=== PATIENT | female | born 1985 | race Caucasian/White ===

== ENCOUNTER 2021-01-16 12:07 | Emergency (ER) | payer OTHER, SELFPAY ==
[2021-01-16 12:33] VITALS: BP 123/72; PULSE 91; RESP 18; TEMP 36.8; O2SAT 98; BMI 43.4
--- NOTE | 2021-01-16 13:10 | ED.DENTAL ---
HPI - Dental/Oral General Chief complaint: Dental/Oral Stated complaint: dental pain Time Seen by Provider: 01/16/21 13:10 Source: patient Limitations: no limitations History of Present Illness HPI Narrative: Patient complaining of left lower dental pain. Pain worsening over the past 24 hours. Pain increases with palpation or chewing. Patient has a history of prior dental issues. Pain is 8/10. Patient denies fever chills shortness of breath or any other medical complaints at this time. Patient denies any allergies to antibiotics. Patient has had wisdom teeth removed in the past and is scheduled to have another 1 removed in the future. Patient denies any draining abscess in the oral cavity at this time. Related Data Home Medications Medication Instructions Recorded Confirmed bupropion HCl 300 mg 24 hr tablet, 300 mg PO DAILY 01/25/20 01/25/20 extended release cholecalciferol (vitamin D3) 50 50 mcg PO DAILY 01/25/20 01/25/20 mcg (2,000 unit) capsule clonazepam 0.5 mg tablet 0.5 mg PO BID PRN 01/25/20 01/25/20 ibuprofen 800 mg tablet 800 mg PO TID 01/25/20 01/25/20 vitamin 1 tab PO DAILY 01/25/20 01/25/20 no.76-iron,carbonyl 29 mg iron-folic acid 1 mg tablet topiramate 50 mg tablet 50 mg PO DAILY 01/25/20 01/25/20 trazodone 50 mg tablet 50 mg PO BEDTIME 01/25/20 01/25/20 Previous Rx's Medication Instructions Recorded pantoprazole 40 mg tablet,delayed 40 mg PO DAILY 90 Days #90 tab 09/16/20 release amoxicillin 500 mg tablet 500 mg PO TID 10 Days #30 tab 01/16/21 naproxen 500 mg tablet 500 mg PO BID PRN #30 tab 01/16/21 tramadol 50 mg tablet 50 mg PO Q8H PRN #10 tab 01/16/21 Allergies Allergy/AdvReac Type Severity Reaction Status Date / Time No Known Allergies Allergy Verified 01/25/20 15:50 Review of Systems Constitutional: Constitutional: Denies chills and Denies fever(s) ENT: Comments: Dental pain Cardiovascular: Cardiovascular: Denies chest pain and Denies dyspnea Respiratory: Respiratory: Denies cough and Denies dyspnea Gastrointestinal: Gastrointestinal: Denies nausea, Denies vomiting and Denies hematemesis Musculoskeletal: Musculoskeletal: Reports no additional musculoskeletal complaints Neurologic: Comments: Denies headache Allergic/Immunologic: Allergic/Immunologic: Denies urticaria PMFSH Past Medical History Attestation statement: The following information was validated with the patient. Medical History Depression with anxiety GERD (gastroesophageal reflux disease) Hypovitaminosis D Insomnia Left knee pain Migraine Surgical History History of laparoscopy History of tonsillectomy and adenoidectomy Family History Family History Father No problems noted. Mother No problems noted. Social History Social History Cigarettes Per Day: 10 Advance Directives: No Advance Directives Information Provided: No Physical Exam Vital Signs: Vital Signs: Last Vital Signs Temp 98.3 F 01/16/21 12:33 Pulse 91 01/16/21 12:33 Resp 18 01/16/21 12:33 BP 123/72 01/16/21 12:33 Pulse Ox 98 01/16/21 12:33 Body Mass Index 43.4 vital signs have been reviewed as normal and appeared to be correct. Blood pressure normal. Heart rate normal. Respiration rate normal. Temperature normal. Oxygen saturation normal. Appearance: Alert. Oriented X3. No acute distress. Head: Normal external exam. Normocephalic. Atraumatic. Eyes: PERRLA. EOMI. Conjunctiva and sclera normal. Eyelids normal. ENT: No obvious drainable abscess noted. Patient has tenderness the left lower molars. Neck: Soft full range of motion, no JVD CVS: Heart regular rate and rhythm no murmurs and rubs Respiratory: Breath sounds are clear to auscultation bilaterally. No accessory muscle use noted. Skin: Skin warm and dry. Normal skin color. Normal skin turgor. No rashes/lesions/lacerations noted. Extremities: No lower extremity edema. Extremities exhibit normal range of motion. Extremities nontender. Neuro: Oriented X 3. No motor deficit. No sensory deficit. Reflexes normal. Course Course Course Narrative: Dental caries Dental abscess Left-sided facial pain Symptoms consistent with dental caries in the left side patient instructed follow-up with a dentist. Will place on amoxicillin and Naprosyn and a short course of tramadol. Mass that was reviewed patient is on benzos chronically no opiates noted. Discharge Plan Discharge Clinical Impression: Dental caries, Toothache Patient Disposition: Home, Self-Care Instructions: Toothache (ED) Additional Instructions: Call dentist follow-up Medication as directed Prescriptions: New amoxicillin 500 mg tablet 500 mg PO TID 10 Days Qty: 30 RF: 0 naproxen 500 mg tablet 500 mg PO BID PRN (Reason: pain) Qty: 30 RF: 0 tramadol 50 mg tablet 50 mg PO Q8H PRN (Reason: pain) Qty: 10 RF: 0 No Action pantoprazole 40 mg tablet,delayed release (DR/EC) 40 mg PO DAILY 90 Days Qty: 90 RF: 3 bupropion HCl 300 mg tablet extended release 24 hr 300 mg PO DAILY RF: 0 clonazepam 0.5 mg tablet 0.5 mg PO BID PRNRF: 0 topiramate 50 mg tablet 50 mg PO DAILY RF: 0 trazodone 50 mg tablet 50 mg PO BEDTIME RF: 0 ibuprofen 800 mg tablet 800 mg PO TID RF: 0 cholecalciferol (vitamin D3) 50 mcg (2,000 unit) capsule 50 mcg PO DAILY RF: 0 PNV 29-1 29 mg iron- 1 mg tablet 1 tab PO DAILY RF: 0
== END 2021-01-16 13:20 | disposition home or self-care (01) ==
LOC: HO.ED 13:17
PROVIDERS: Emergency Provider Emergency Medicine Emergency Medical Services; PCP Internal Medicine
DX: K04.7 Periapical abscess without sinus (principal); K08.89 Other specified disorders of teeth and supporting structures; F17.210 Nicotine dependence, cigarettes, uncomplicated; Z71.6 Tobacco abuse counseling
CPT/HCPCS: 99282

== ENCOUNTER 2022-06-14 13:06 | Emergency (ER) | payer OTHER, SELFPAY ==
[2022-06-14 13:09] VITALS: PULSE 106; RESP 20; TEMP 36.6; O2SAT 98; BMI 42.7
--- NOTE | 2022-06-14 13:12 | ED_ITS ---
HPI - General Adult General Chief complaint: Skin/Abscess/Foreign Body Stated complaint: Possible Scabies? Time Seen by Provider: 06/14/22 13:15 Source: patient Mode of arrival: ambulatory Limitations: no limitations History of Present Illness HPI narrative: Patient is a 37 year old assigned female at with a history of anxiety presenting to the emergency department today concerned she has scabies. Patient states that she has a large lesion on the right side of her abdomen and a dry rash on her arms and legs so she is concerned that she has scabies. Patient denies any dizziness, lightheadedness, abdominal pain, nausea, vomiting, fever, chills, blurry vision, double vision, loss of vision, chest pain, difficulty breathing, shortness of breath, back pain, night sweats, pain with urination, increased urinary frequency, increased urinary urgency, blood in her urine or stool, syncope or a near syncopal episode, recent trauma or falls, bowel incontinence, bladder incontinence, bowel retention, bladder retention, or any other complaints at this time. Onset (ago): day(s) Severity: mild Severity scale (1-10): 2 Exacerbating factors: none Associated symptoms: rash Treatments prior to arrival: none Related Data Home Medications Medication Instructions Recorded Confirmed bupropion HCl 300 mg 24 hr tablet, 300 mg PO DAILY 01/25/20 01/25/20 extended release cholecalciferol (vitamin D3) 50 50 mcg PO DAILY 01/25/20 01/25/20 mcg (2,000 unit) capsule clonazepam 0.5 mg tablet 0.5 mg PO BID PRN 01/25/20 01/25/20 ibuprofen 800 mg tablet 800 mg PO TID 01/25/20 01/25/20 vitamin 1 tab PO DAILY 01/25/20 01/25/20 no.76-iron,carbonyl 29 mg iron-folic acid 1 mg tablet topiramate 50 mg tablet 50 mg PO DAILY 01/25/20 01/25/20 trazodone 50 mg tablet 50 mg PO BEDTIME 01/25/20 01/25/20 Previous Rx's Medication Instructions Recorded pantoprazole 40 mg tablet,delayed 40 mg PO DAILY 90 days #90 tabs 09/16/20 release amoxicillin 500 mg tablet 500 mg PO TID 10 days #30 tabs 01/16/21 naproxen 500 mg tablet 500 mg PO BID PRN pain #30 tabs 01/16/21 tramadol 50 mg tablet 50 mg PO Q8H PRN pain #10 tabs 01/16/21 cephalexin 500 mg capsule 500 mg PO Q6H 7 days #28 caps 06/14/22 prednisone 20 mg tablet 20 mg PO DAILY 7 days #7 tabs 06/14/22 Allergies Allergy/AdvReac Type Severity Reaction Status Date / Time No Known Allergies Allergy Verified 01/25/20 15:50 Review of Systems Constitutional: Constitutional: Reports no additional constitutional complaints, Denies chills, Denies fever(s) and Denies night sweats Eyes: Eyes: Reports no additional eye complaints, Denies blurry vision, Denies change in vision, Denies diplopia, Denies eye discharge, Denies loss of vision and Denies eye pain ENT: Denies dizziness Cardiovascular: Cardiovascular: Reports no additional cardiovascular complaints, Denies chest pain, Denies lightheadedness, Denies Loss of Consciousness and Denies dyspnea Respiratory: Respiratory: Reports no additional respiratory complaints and Denies dyspnea Gastrointestinal: Gastrointestinal: Reports no additional gastrointestinal complaints, Denies abdominal pain, Denies melena, Denies hematochezia, Denies change in bowel habits and Denies change in stool character Genitourinary: Genitourinary: Denies hematuria, Denies urinary frequency, Denies dysuria, Denies urinary incontinence, Denies urinary hesitancy and Denies urinary urgency Musculoskeletal: Musculoskeletal: Reports no additional musculoskeletal c omplaints, Denies numbness and Denies tingling Integumentary/Breasts: Skin/Breast: Reports dry skin Comments: lesion to the right lower abdomen Neurologic: Denies dizziness, Denies loss of vision, Denies numbness and Denies tingling Psychiatric: Psychiatric: Reports no additional psychiatric complaints Endocrine: Endocrine: Reports no additional endocrine complaints Hematologic/Lymphatic: Hematologic/Lymphatic: Reports no additional hematologic/lymphatic complaints Allergic/Immunologic: Allergic/Immunologic: Reports no additional allergic/immunologic complaints PMFSH Past Medical History Attestation statement: The following information was validated with the patient. Source: old records reviewed and nursing notes reviewed Medical History Depression with anxiety GERD (gastroesophageal reflux disease) Hypovitaminosis D Insomnia Left knee pain Migraine Surgical History History of laparoscopy History of tonsillectomy and adenoidectomy Family History Family History Father No problems noted. Mother No problems noted. Social History Social History Cigarettes Per Day: 10 Advance Directives: No Advance Directives Information Provided: Yes Physical Exam ED Vital Signs: Vital Signs - 24 hr 06/14/22 13:09 Temperature 98 F Pulse Rate 106 H Respiratory Rate 20 Pulse Oximetry 98 Oxygen Delivery Method Room Air BMI result Body Mass Index 42.7 Const General: cooperative, no acute distress, alert and awake Nutritional Appearance: well nourished Orientation/consciousness: patient oriented x3 Limitations: no limitations HENMT Head: Yes normal to inspection and Yes atraumatic Ears: hearing grossly normal bilaterally and external ears normal General nose exam: Normal external nose present, no nasal discharge noted and no epistaxis Face and sinus: Yes normal facial exam, No abrasion and No laceration Mouth: Normal oral and palatal mucosa present, no drooling and no muffled voice Eyes General: appearance normal, both eyes and all related structures Periorbital: periorbital findings normal Eyelids: Yes eyelids normal Conjunctivae: conjunctivae normal Pupils: Equal, round and reactive pupils present EOM: EOMs intact bilaterally Neck Neck: Yes normal visual inspection, Yes full ROM and Yes no lymphadenopathy Chest Chest palpation & inspection: normal inspection of the chest Resp Effort & Inspection: normal respiratory effort and able to speak in complete sentences Auscultation: clear to auscultation bilaterally Cardio Rate: regular rate Rhythm: regular rhythm GI Other: small ruptured abscess present to the right lower abdomen with minimal surrounding erythema, no active draining Skin Other: dry skin on bilateral arms and legs Neuro General: patient oriented x3 and moves all extremities Cranial nerves: Yes Equal, round and reactive pupils present Cognition (Neuro): normal cognition Motor exam (neuro): 5/5 motor strength present throughout Sensory Exam: Normal double simultaneous stimulation for sensation Coordination: [id number] test normal Extrem General: Yes normal to inspection, Yes full ROM and Yes capillary refill normal Psych Appearance: grossly normal Mental Status: mental status grossly normal Affect: normal affect Attitude: cooperative Thought process: Normal thought process present Thought content: Normal thought content present Insight: Good insight present (Psych) Medical Decision Making Medical Decision Making MDM Narrative: Patient is a 37 year old assigned male at with a history of anxiety presenting to the emergency department today with dry skin and a ruptured abscess. Patient's physical exam showed dry skin and a small ruptured abscess to the right lower quadrant of the abdomen. Given the surrounding erythema, will treat for cellulitis. I explained my physical exam findings as well as all test results to the patient. I answered all questions asked by the patient. I stressed the importance of the patient taking her medication as prescribed. I stressed the importance of the patient following up with her primary care provider and if symptoms persist, a farm equipment engine mechanic. I stressed the importance of the patient returning to the emergency department immediately if her symptoms were to worsen or if she were to develop any dizziness, shortness of breath, difficulty breathing, chest pain, blurry vision, loss of vision, nausea, vomiting, abdominal pain, fever, chills, back pain, or any other complaints. Alfredo brandon verbalized agreement and understanding with this treatment plan and discharge. Differential Diagnosis Differential Diagnoses: The differential diagnosis associated with the presentation includes abscess, cellulitis, eczema Discharge Plan Discharge Clinical Impression: Cellulitis, Eczema Patient Disposition: Home, Self-Care Instructions: Cellulitis (ED), Dermatitis (ED) Additional Instructions: Follow up with your primary care provider and if symptoms persist, a farm equipment engine mechanic. Return to the emergency department immediately if your symptoms worsen or if you develop any dizziness, shortness of breath, difficulty b reathing, chest pain, blurry vision, loss of vision, nausea, vomiting, abdominal pain, fever, chills, back pain, or any other complaints. Prescriptions: New prednisone 20 mg tablet 20 mg PO DAILY 7 Days Qty: 7 0RF cephalexin 500 mg capsule 500 mg PO Q6H 7 Days Qty: 28 0RF No Action pantoprazole 40 mg tablet,delayed release (DR/EC) 40 mg PO DAILY 90 Days Qty: 90 3RF amoxicillin 500 mg tablet 500 mg PO TID 10 Days Qty: 30 0RF naproxen 500 mg tablet 500 mg PO BID PRN (Reason: pain) Qty: 30 0RF tramadol 50 mg tablet 50 mg PO Q8H PRN (Reason: pain) Qty: 10 0RF bupropion HCl 300 mg tablet extended release 24 hr 300 mg PO DAILY clonazepam 0.5 mg tablet 0.5 mg PO BID PRN topiramate 50 mg tablet 50 mg PO DAILY trazodone 50 mg tablet 50 mg PO BEDTIME ibuprofen 800 mg tablet 800 mg PO TID cholecalciferol (vitamin D3) 50 mcg (2,000 unit) capsule 50 mcg PO DAILY PNV 29-1 29 mg iron- 1 mg tablet 1 tab PO DAILY Referrals: [facility] [Provider Group] (Call to establish and follow up with a farm equipment engine mechanic if symptoms persist.) [facility] [facility] [place] [facility] [place] (Call to establish and follow up with a primary care provider. If you already have a primary care provider, please follow up with them.) [facility] [place] [facility] Group] (Call to establish and follow up with a primary care provider. If you already have a primary care provider, please follow up with them.) [facility] [place] [facility] [place] Group[place] (Call to establish and follow up with a primary care provider. If you already have a primary care provider, please follow up with them.) Print Language: Gambian
== END 2022-06-14 13:24 | disposition home or self-care (01) ==
PROVIDERS: Emergency Provider Emergency Medicine
DX: L03.311 Cellulitis of abdominal wall (principal); L30.9 Dermatitis, unspecified; Z79.899 Other long term (current) drug therapy
CPT/HCPCS: 99282; 99283

== ENCOUNTER 2022-06-14 17:11 | Emergency (ER) | payer OTHER, SELFPAY ==
[2022-06-14 17:25] VITALS: BP 162/93; PULSE 108; RESP 20; TEMP 36.4; O2SAT 98; BMI 42.5
--- NOTE | 2022-06-14 18:15 | PC.NURSE ---
pt called into exam room, visibly anxious, observed picking at clothing, and fixation on skin. got pt changed into hospital attire, author was able to visualize small sebaceous cyst that appears to have opened. when questioned pt asked do you see the bug in there?! it's in there crawling around, they're all over my back nurse was able to visualize back, no open areas present, skin clean warm and dry. TM
--- NOTE | 2022-06-14 18:29 | ED.SKABFB ---
HPI - Skin/Abscess/Foreign Bdy General Chief complaint: Skin/Abscess/Foreign Body Stated complaint: back and lower stomach abcess? Time Seen by Provider: 06/14/22 18:18 Source: patient Mode of arrival: ambulatory Limitations: no limitations History of Present Illness HPI narrative: Patient is a 37-year-old female who presents emergency department for evaluation of an abscess to her stomach and diffuse rash. She states that she was seen in the emergency department earlier today, she received a prescription for antibiotics and a steroid. She is very anxious, states she is very concerned about scabies, and she would like to have this re-evaluated. Related Data Home Medications Medication Instructions Recorded Confirmed bupropion HCl 300 mg 24 hr tablet, 300 mg PO DAILY 01/25/20 01/25/20 extended release cholecalciferol (vitamin D3) 50 50 mcg PO DAILY 01/25/20 01/25/20 mcg (2,000 unit) capsule clonazepam 0.5 mg tablet 0.5 mg PO BID PRN 01/25/20 01/25/20 ibuprofen 800 mg tablet 800 mg PO TID 01/25/20 01/25/20 vitamin 1 tab PO DAILY 01/25/20 01/25/20 no.76-iron,carbonyl 29 mg iron-folic acid 1 mg tablet topiramate 50 mg tablet 50 mg PO DAILY 01/25/20 01/25/20 trazodone 50 mg tablet 50 mg PO BEDTIME 01/25/20 01/25/20 Previous Rx's Medication Instructions Recorded pantoprazole 40 mg tablet,delayed 40 mg PO DAILY 90 days #90 tabs 09/16/20 release amoxicillin 500 mg tablet 500 mg PO TID 10 days #30 tabs 01/16/21 naproxen 500 mg tablet 500 mg PO BID PRN pain #30 tabs 01/16/21 tramadol 50 mg tablet 50 mg PO Q8H PRN pain #10 tabs 01/16/21 cephalexin 500 mg capsule 500 mg PO Q6H 7 days #28 caps 06/14/22 prednisone 20 mg tablet 20 mg PO DAILY 7 days #7 tabs 06/14/22 Allergies Allergy/AdvReac Type Severity Reaction Status Date / Time No Known Allergies Allergy Verified 01/25/20 15:50 Review of Systems Review of Systems: Yes all other systems are reviewed and are negative PMFSH Past Medical History Attestation statement: The following information was validated with the patient. Source: old records reviewed Medical History Depression with anxiety GERD (gastroesophageal reflux disease) Hypovitaminosis D Insomnia Left knee pain Migraine Surgical History History of laparoscopy History of tonsillectomy and adenoidectomy Family History Family History Father No problems noted. Mother No problems noted. Social History Social History Cigarettes Per Day: 10 Advance Directives: No Advance Directives Information Provided: Yes Physical Exam Vital Signs: Vital Signs: Last Vital Signs Temp 97.6 F 06/14/22 17:25 Pulse 108 H 06/14/22 17:25 Resp 20 06/14/22 17:25 BP 162/93 H 06/14/22 17:25 Pulse Ox 98 06/14/22 17:25 O2 Del Method 06/14/22 17:25 BMI result Body Mass Index 42.5 Appearance: Alert.?Oriented to person, place and time. No acute distress.?Normal affect. Neck: Normal inspection.? Neck supple.?? CVS: Heart sounds normal. Normal heart rate and rhythm.? Pulses normal.?? Respiratory: No respiratory distress.? Lung sounds clear to auscultation bilaterally?? Abdomen: Soft and non-tender. Normoactive bowel sounds. Skin: Skin warm and dry.? Normal skin color.? Right lower quadrant the abdomen with open abscess, no fluctuance, no active drainage, surrounding erythema. Neuro: Moves all extremities spontaneously. Sensation intact bilaterally. . Ambulates with normal steady gait. Medical Decision Making Medical Decision Making MDM Narrative: Patient was seen in the emergency department this afternoon, was found to have a ruptured abscess to the right lower quadrant of her abdomen, there was concern for cellulitis therefore prescription for Keflex was sent to pharmacy, she was additionally advised that the rash present to arms and legs was consistent with eczema, she received a prescription for prednisone was advised to follow-up with box office attendant for persistent symptoms. Earlier she expressed her concern about scabies, she states that she keeps getting a sharp sensation on all areas of her skin to the back arms and legs, and then it goes away. The areas that she is concerned about at the time of examination have a very fine macular type rash present. Upon examination there is absence of a papulovesicular rash or persistent nodules, she reports these sensations not to be particularly itchy, and she is certainly without any intense itch, it is absent from into her intertriginous/ interdigital areas, no visible burrows. I advised her at this time I have a very low suspicion for scabies, she was reassured with this. I did offer treatment with permethrin we discussed appropriate treatment she however at this time. She will continue to take the Keflex and prednisone as prescribed to her earlier today. We also discussed using a topical moisturizing lotions/ointment and follow-up with primary care provider as needed. She verbalized understanding, she is stable for discharge Differential Diagnosis Differential Diagnoses: The differential diagnosis associated with the presentation includes (Abscess, cellulitis, scabies, bedbugs, contact dermatitis, allergic reaction, eczema) External Record Review External record reviewed: Office record Discharge Plan Discharge Clinical Impression: Cellulitis Patient Disposition: Home, Self-Care Additional Instructions: Continue taking the medications as prescribed to earlier today from the emergency department. As we discussed, you may also use Benadryl as needed for symptoms. Please contact your primary care provider and arrange for a follow-up visit this week. You may return back to emergency department with any new or worsening symptoms or concerns. Prescriptions: No Action pantoprazole 40 mg tablet,delayed release (DR/EC) 40 mg PO DAILY 90 Days Qty: 90 3RF amoxicillin 500 mg tablet 500 mg PO TID 10 Days Qty: 30 0RF naproxen 500 mg tablet 500 mg PO BID PRN (Reason: pain) Qty: 30 0RF tramadol 50 mg tablet 50 mg PO Q8H PRN (Reason: pain) Qty: 10 0RF prednisone 20 mg tablet 20 mg PO DAILY 7 Days Qty: 7 0RF cephalexin 500 mg capsule 500 mg PO Q6H 7 Days Qty: 28 0RF bupropion HCl 300 mg tablet extended release 24 hr 300 mg PO DAILY clonazepam 0.5 mg tablet 0.5 mg PO BID PRN topiramate 50 mg tablet 50 mg PO DAILY trazodone 50 mg tablet 50 mg PO BEDTIME ibuprofen 800 mg tablet 800 mg PO TID cholecalciferol (vitamin D3) 50 mcg (2,000 unit) capsule 50 mcg PO DAILY PNV 29-1 29 mg iron- 1 mg tablet 1 tab PO DAILY Referrals: Physician,Unknown J [Primary Care Provider] -
== END 2022-06-14 18:59 | disposition home or self-care (01) ==
PROVIDERS: Emergency Provider Emergency Medicine Emergency Medical Services
DX: L03.311 Cellulitis of abdominal wall (principal); L30.9 Dermatitis, unspecified
CPT/HCPCS: 99282

== ENCOUNTER 2022-07-16 23:52 | Emergency (ER) | payer OTHER, SELFPAY ==
[2022-07-17 00:04] VITALS: BP 189/118; PULSE 110; RESP 22; TEMP 36.8; O2SAT 98; BMI 37.8
--- NOTE | 2022-07-17 01:29 | ED_ITS ---
HPI - General Adult General Chief complaint: Animal Bite Stated complaint: mites from cat? Time Seen by Provider: 07/17/22 01:17 Source: patient, RN notes reviewed and old records reviewed Mode of arrival: ambulatory Limitations: no limitations History of Present Illness HPI narrative: 37-year-old female presents for evaluation of a rash to her entire body. She reports that when she was here about 1 month ago with concern for scabies. She was told that she had cellulitis. She states ?I feel like something is crawling all over my skin. ? She states that her boyfriend and her cousin live with her both have similar rashes now. The rash is quite itchy and she has been scratching herself for the last month. She reports that she has a cat at home and is concerned that she got some sort of mites from the cap Related Data Home Medications Medication Instructions Recorded Confirmed bupropion HCl 300 mg 24 hr tablet, 300 mg PO DAILY 01/25/20 01/25/20 extended release cholecalciferol (vitamin D3) 50 50 mcg PO DAILY 01/25/20 01/25/20 mcg (2,000 unit) capsule clonazepam 0.5 mg tablet 0.5 mg PO BID PRN 01/25/20 01/25/20 ibuprofen 800 mg tablet 800 mg PO TID 01/25/20 01/25/20 vitamin 1 tab PO DAILY 01/25/20 01/25/20 no.76-iron,carbonyl 29 mg iron-folic acid 1 mg tablet topiramate 50 mg tablet 50 mg PO DAILY 01/25/20 01/25/20 trazodone 50 mg tablet 50 mg PO BEDTIME 01/25/20 01/25/20 Previous Rx's Medication Instructions Recorded pantoprazole 40 mg tablet,delayed 40 mg PO DAILY 90 days #90 tabs 09/16/20 release amoxicillin 500 mg tablet 500 mg PO TID 10 days #30 tabs 01/16/21 naproxen 500 mg tablet 500 mg PO BID PRN pain #30 tabs 01/16/21 tramadol 50 mg tablet 50 mg PO Q8H PRN pain #10 tabs 01/16/21 cephalexin 500 mg capsule 500 mg PO Q6H 7 days #28 caps 06/14/22 prednisone 20 mg tablet 20 mg PO DAILY 7 days #7 tabs 06/14/22 diphenhydramine HCl 25 mg capsule 25 mg PO TID PRN itching #20 caps 07/17/22 (Banophen) permethrin 5 % topical cream 1 appl topical Q14D 2 doses #60 07/17/22 grams Allergies Allergy/AdvReac Type Severity Reaction Status Date / Time No Known Allergies Allergy Verified 07/17/22 00:07 Review of Systems Constitutional: Constitutional: Reports as per HPI, Denies chills, Denies fatigue, Denies fever(s) and Denies headache(s) ENT: Denies headache(s) Cardiovascular: Cardiovascular: Denies chest pain and Denies dyspnea Respiratory: Respiratory: Denies cough and Denies dyspnea Gastrointestinal: Gastrointestinal: Denies abdominal pain, Denies constipation and Denies vomiting Genitourinary: Genitourinary: Denies dysuria Integumentary/Breasts: Skin/Breast: Reports pruritus and Reports rash Neurologic: Denies headache(s) and Denies focal weakness Endocrine: Endocrine: Denies fatigue PMFSH Past Medical History Medical History Depression with anxiety GERD (gastroesophageal reflux disease) Hypovitaminosis D Insomnia Left knee pain Migraine Surgical History History of laparoscopy History of tonsillectomy and adenoidectomy Family History Family History Father No problems noted. Mother No problems noted. Social History Social History Cigarettes Per Day: 10 Advance Directives: No Advance Directives Information Provided: Yes Physical Exam ED Vital Signs: Vital Signs - 24 hr 07/17/22 00:04 Temperature 98.2 F Pulse Rate 110 H Respiratory Rate 22 H Blood Pressure 189/118 H Pulse Oximetry 98 Oxygen Delivery Method Room Air BMI result Body Mass Index 37.8 Const General: healthy appearing, comfortable, no acute distress, alert and awake Nutritional Appearance: well nourished Orientation/consciousness: patient oriented x3 HENMT Head: Yes normocephalic and Yes atraumatic Throat: Yes posterior oropharynx normal Eyes Eyelids: Yes eyelids normal Conjunctivae: conjunctivae normal Sclerae: sclerae normal Corneas: corneas normal Pupils: Equal, round and reactive pupils present EOM: EOMs intact bilaterally Neck Neck: Yes full ROM Resp Effort & Inspection: normal respiratory effort, able to speak in complete sentences, no audible wheezes and not labored Auscultation: clear to auscultation bilaterally Cardio Rate: regular rate Rhythm: regular rhythm GI Inspection: No distended Palpation (GI): Soft to palpation, not firm, nontender, no guarding and not rig id Auscultation: normoactive bowel sounds Skin Other: Patient has a diffuse macular rash with some evident areas of burrowing. Her linear excoriation candelario as well. The rash is most evident on the arms and legs with some truncal involvement. No obvious involvement to the face Neuro General: patient oriented x3 Cranial nerves: Yes CN's II-XII intact bilaterally, Yes Equal, round and reactive pupils present and Yes Bilaterally intact EOM present Cognition (Neuro): normal cognition Extrem Other: Moving all extremities well without any obvious deformities Medical Decision Making Medical Decision Making MDM Narrative: Patient is here about 1 month ago with some concern for scabies. Her rash is not consistent with scabies and there are 2 other individuals the house with a similar rash. We will treat with permethrin x2 doses. Differential Diagnosis Scabies Acute rash Dermatitis Folliculitis Cellulitis Discharge Plan Discharge Clinical Impression: Dermatitis Patient Disposition: Home, Self-Care Instructions: Scabies (ED) Additional Instructions: It is possible your rash is attributed to scabies. Use permethrin cream applied to the entire body except avoid the eyes and leave on overnight. Shower off in the morning Use Benadryl as needed for itching and rash. This will make you sleepy Prescriptions: New permethrin 5 % cream 1 appl topical Q14D Qty: 60 0RF Rx Instructions: apply second treatment 14 days after first treatment if live lice remain diphenhydramine HCl [Banophen] 25 mg capsule 25 mg PO TID PRN (Reason: itching) Qty: 20 0RF No Action pantoprazole 40 mg tablet,delayed release (DR/EC) 40 mg PO DAILY 90 Days Qty: 90 3RF amoxicillin 500 mg tablet 500 mg PO TID 10 Days Qty: 30 0RF naproxen 500 mg tablet 500 mg PO BID PRN (Reason: pain) Qty: 30 0RF tramadol 50 mg tablet 50 mg PO Q8H PRN (Reason: pain) Qty: 10 0RF prednisone 20 mg tablet 20 mg PO DAILY 7 Days Qty: 7 0RF cephalexin 500 mg capsule 500 mg PO Q6H 7 Days Qty: 28 0RF bupropion HCl 300 mg tablet extended release 24 hr 300 mg PO DAILY clonazepam 0.5 mg tablet 0.5 mg PO BID PRN topiramate 50 mg tablet 50 mg PO DAILY trazodone 50 mg tablet 50 mg PO BEDTIME ibuprofen 800 mg tablet 800 mg PO TID cholecalciferol (vitamin D3) 50 mcg (2,000 unit) capsule 50 mcg PO DAILY PNV 29-1 29 mg iron- 1 mg tablet 1 tab PO DAILY
== END 2022-07-17 01:46 | disposition home or self-care (01) ==
PROVIDERS: Emergency Provider Emergency Medicine Emergency Medical Services
DX: L30.9 Dermatitis, unspecified (principal)
CPT/HCPCS: 99282; 99283

== ENCOUNTER 2024-05-17 13:31 | Outpatient (AMB) | payer OTHER, SELFPAY ==
[2024-05-17 13:39] VITALS: BP 146/100; BMI 38.0
--- NOTE | 2024-05-17 13:39 | MHC.PC.OV ---
Vital Signs 05/17/24 13:39 Height 5 ft 1 in Weight 201 lb BMI 38.0 BP 146/100 H Blood Pressure Location Lt brachial Position Sitting Intake Visit Reasons: asthma f/u Lead Designer Required: No Accompanied by: Self / Same As Patient Allergies No Known Allergies Allergy (Verified 05/17/24 13:50) Medication List - Last Reconciled 05/17/24 by Chasity Luciano MD No Known Home Meds Tobacco use date assessed: 05/17/24 Dental Screening Dental Screen Date: 05/17/24 Did you have a dental visit in the last 12 months?: No Did you have a dental problem in the last 6 months where you did not have access to dental care?: No Was dental information given to patient?: Patient has dentist HPI HPI Comments History of Present Illness Details This is a 38-year-old female with moderate major depression, anxiety moderate persistent asthma, low vitamin-D and obesity that comes today to reestablish care. She has to be on bupropion which works well for her depression. She requires rescue inhaler every day and I will add Anoro. Vitamin-D levels were be ordered. She is obese with a BMI of 38 and will be referred to weight management. [facility] Medical History (Updated 05/17/24 @ 19:32 by Chasity Luciano MD) Insomnia Migraine GERD (gastroesophageal reflux disease) Hypovitaminosis D Depression with anxiety Left knee pain Surgical History History of laparoscopy History of tonsillectomy and adenoidectomy Family History (Updated 05/17/24 @ 13:55 by Chasity Luciano MD) Father Essential hypertension Mother No problems noted. Social History (Updated 05/17/24 @ 13:55 by Chasity Luciano MD) Housing: Apartment Alcohol intake: current Alcohol intake frequency: a few times a month Alcohol type: hard liquor and other Patient Tobacco Use Status: Current everyday Tobacco user Tobacco use type: Cigarette Cigarettes Per Day: 10 e-Cigarette/Vaping Use: Never Used Second Hand Smoke Exposure: No service: No Current occupational status: unemployed Cognitive needs: No Hearing needs: No Vision needs: No Questionnaire PHQ-9 Over the last 2 weeks, how often have you been bothered by any of the following problems? 1. Little interest or pleasure in doing things: more than half the days 2. Feeling down, depressed, or hopeless: more than half the days 3. Trouble falling or staying asleep, or sleeping too much: nearly every day 4. Feeling tired or having little energy: nearly every day 5. Poor appetite or overeating: several days 6. Feeling bad about yourself - or that you are a failure or have let yourself or your family down: more than half the days 7. Trouble concentrating on things, such as reading the newspaper or watching television: several days 8. Moving or speaking so slowly that other people could have noticed. Or the opposite - being so fidgety or restless that you have been moving around a lot more than usual: more than half the days 9. Thoughts that you would be better off or of hurting yourself in some way: not at all Total score: 16 Depression Screening Interpretation: Positive (no suicidal thoughts) Depression Screening Follow-up: Existing condition and Follow-up Visit Requested Depression Screening Done: Yes 97205 - PHQ-9 Billing: Yes Source: Developed by Drs. Crispin Iyer, Jaqui Ortega, Vinay Dunaway and colleagues, with an educational domingo from [employer]. Thrive Questionnaire Date Thrive assessed: 05/17/24 I am a: Patient What is your living situation today?: I have a steady place to live Within the past 12 months, did the food you bought not last and you didn't have the money to get more?: Never true Within the past 12 months, did you worry whether your food would run out before you got money to buy more?: Never true Do you have trouble paying for medicines?: No Do you have trouble getting transportation to medical appointments?: No Do you have trouble paying your heating and electricity bill?: No Do you have trouble taking care of your child, family member or friend?: No Do you have trouble with day-to-day activities such as bathing, preparing meals, shopping, managing finances, etc.?: No Are you currently unemployed and looking for a job?: No Are you interested in more education?: No Please select the resources that you would like help with: None Currently or been in a relationship where the following occur: No concerns reported THRIVE Score: 0 AUDIT C Alcohol Use Questionnaire (AUDIT-C) 1. How often do you have a drink containing alcohol?: Monthly or less 2. How many drinks containing alcohol do you have on a typical day when you are drinking?: 1 or 2 3. How often do you have six or more drinks on one occasion?: Never Total Score: 1 Score Reviewed/Action Taken: No AALIYAH-7 AMB Questionnaire AALIYAH-7 Date AALIYAH - 7 assessed: 05/17/24 Feeling nervous, anxious, or on edge: 2 = More than half the days Not being able to stop or control worryin = Several days Worrying too much about different things: 2 = More than half the days Trouble relaxin = More than half the days Being so restless that it is hard to sit still: 3 = Nearly every day Becoming easily annoyed or irritable: 3 = Nearly every day Feeling afraid as if something awful might happen: 0 = Not at all Total AALIYAH-7 score (0-4 normal; 5-9 mild; 10-14 moderate; 15-21 severe): 13 Source: Developed by Drs. Crispin Iyer, Jaqui Ortega, Vinay Dunaway and colleagues, with an educational domingo from [employer]. AALIYAH-7 Assessment Billing AALIYAH-7 Assessment Tool: AALIYAH-7 Assessment 14259 Review of Systems Const All systems reviewed & are unremarkable except as noted in HPI and below Card Denies chest pain at rest, Denies chest pain with activity, Denies edema, Denies irregular heart rhythm, Denies claudication, Denies dyspnea, Denies dyspnea on exertion, Denies orthopnea, Denies paroxysmal nocturnal dyspnea and Denies slow heart rate Resp Denies cough, Denies dyspnea and Denies dyspnea on exertion Physical exam (Primary Care) Vital Signs: Last Vital Signs BP 146/100 H 05/17/24 13:39 Care Plan Goal for BP management: Recheck blood pressure in 3 weeks BMI result Body Mass Index 38.0 BMI Assessment/Plan discussion: High BMI High, discussed plan: lifestyle, weight reduction, dietary and physical activity Tobacco/Smoking Status: Tobacco use Status Tobacco use date assessed 05/17/24 05/17/24 13:49 Patient Tobacco Use Status Current everyday Tobacco 05/17/24 13:55 Tobacco use type Cigarette 05/17/24 13:55 e-Cigarette/Vaping Use Never Used 05/17/24 13:55 Are you ready to quit: No Tobacco cessation counseling provided: Yes Items discussed: Nicotine replacement and QuitWorks Relapse Prevention: discussed the importance of a supportive environment, discussed extending NRT, discussed negative mood or depression after quitting, weight gain after smoking is common and discussed dietary, exercise and/or lifestyle changes Number of minutes spent counselin CPT code: 56813 - 4-10 Minutes PHQ-9: PHQ-9 Score PHQ-9: Total score 16 05/17/24 14:38 Depression Screening Interpretation: Positive (no suicidal thoughts) Depression Screening Follow-up: Existing condition and Follow-up Visit Requested Thrive Assessment: Date of Thrive Assessment Date Thrive assessed 05/17/24 05/17/24 13:49 Currently or been in a relationship where the following occur: No concerns reported Resp Effort & Inspection: normal respiratory effort Auscultation: clear to auscultation bilaterally Cardio Jugular venous distension: no JVD Rate: regular rate Rhythm: regular rhythm Heart sounds: S1 normal heart sound present and S2 normal heart sound present Extrem General: Yes full ROM Office Procedures Flu Questionnaire Does the patient have a severe egg allergy?: No Immunizations Fluarix Triv 5312-8422 (PF) 45 mcg (15 mcg x 3)/0.5 mL IM syringe Performing Provider: Chasity Luciano MD Performing Location[facility] [place] [facility] Documented (not given) by: YOVANI Maher on 05/17/24 13:49 Reason Not Given: Patient Refused Boostrix Tdap 2.5 Lf unit-8 mcg-5 Lf/0.5 mL intramuscular syringe Performing Provider: Chasity Luciano MD Performing Location: [facility] [place] Adult [facility] Administered by: YOVANI Maher on 05/17/24 14:05 Dose Route Admin Location Dispensed Lot Number Expiration Date FORMERLY NAMED [facility] Sail Maker 0.5 mL IM Left Deltoid 0.5 mL [id number] 07/06/26 71836-067-11 [employer] VIS Given Date VIS Provided VIS Publication Date 05/17/24 Single Vaccine 20 Eligibility Eligibility Date Funding Source Not [facility] Eligible 05/17/24 Private Coding Level of Care Code Est Pt Level 4 (75422) Complex EM visit Add On G2211 Diagnoses Moderate major depression F32.1 Moderate persistent asthma J45.40 Obesity (BMI 30-39.9) E66.9 Hypovitaminosis D E55.9 AALIYAH (generalized anxiety disorder) F41.1 Additional Codes AALIYAH-7 Assessment Billing - AALIYAH-7 Assessment Tool: AALIYAH-7 Assessment 21947 ([id number]) PHQ-9 - 08286 - PHQ-9 Billing: Yes ([id number]) Vital Signs *Quality* - CPT code: 63021 - 4-10 Minutes ([id number]) Time Spent (min) 25 Assessment & Plan Assessment & Plan (1) Moderate major depression: Code(s): F32.1 - Major depressive disorder, single episode, moderate Category: Medical (2) Moderate persistent asthma: Code(s): J45.40 - Moderate persistent asthma, uncomplicated Category: Medical (3) Obesity (BMI 30-39.9): Code(s): E66.9 - Obesity, unspecified Category: Medical (4) Hypovitaminosis D: Code(s): E55.9 - Vitamin D deficiency, unspecified Category: Medical (5) AALIYAH (generalized anxiety disorder): Code(s): F41.1 - Generalized anxiety disorder Category: Medical Plan Restart bupropion for depression. Start Anoro for asthma. Referred to pulmonology. Advised to quit smoking. Labs order including vitamin-D levels. Orders: Orders Thyroid Stimulating Hormone Today E66.9 - Obesity, unspecified TDaP Immunization Today Z23 - Encounter for immunization Influenza 8090-0037 Immunization Today Z23 - Encounter for immunization Lipid Panel Today E66.9 - Obesity, unspecified Comprehensive [place]. Panel Fast Today E66.9 - Obesity, unspecified Complete Blood Count Auto Diff Today E66.9 - Obesity, unspecified Referrals Medical Weight Management Referral E66.9 - Obesity, unspecified Pulmonology Referral J45.40 - Moderate persistent asthma, uncomplicated Medications: New bupropion HCl XL 150 mg PO QAM 90 days 90 tabs 1RF F32.1 - Major depressive disorder, single episode, moderate umeclidinium-vilanterol 62.5-25 mcg/actuation (Anoro Ellipta) 1 inh inhalation DAILY 60 days 60 ea 4RF J45.40 - Moderate persistent asthma, uncomplicated
== END 2024-05-17 14:08 | disposition home or self-care (01) ==
PROVIDERS: Visit Provider Internal Medicine
DX: J45.40 Moderate persistent asthma, uncomplicated (principal); F32.1 Major depressive disorder, single episode, moderate; Z68.38 Body mass index [BMI] 38.0-38.9, adult; E66.9 Obesity, unspecified; E55.9 Vitamin D deficiency, unspecified; F41.1 Generalized anxiety disorder; Z23 Encounter for immunization

== ENCOUNTER → 2024-05-17 13:31 | Outpatient (BNVA) | payer OTHER, SELFPAY | PROVIDERS: Visit Provider Internal Medicine | DX: E55.9 Vitamin D deficiency, unspecified (principal); E66.9 Obesity, unspecified; F32.1 Major depressive disorder, single episode, moderate; J45.40 Moderate persistent asthma, uncomplicated; F41.1 Generalized anxiety disorder; Z68.38 Body mass index [BMI] 38.0-38.9, adult | CPT/HCPCS: 90471; 90715; 96127; 99212 ==

== ENCOUNTER 2025-01-10 06:04 | Emergency (ER) | payer OTHER, SELFPAY ==
--- NOTE | ~2025-01-10 | XR_ITS ---
CLINICAL HISTORY: cough 2 view chest x-ray. Comparison: None Findings: The lungs are adequately expanded. No focal consolidation. No effusion or pneumothorax. Cardiac and mediastinal contours are within normal limits. No acute osseous abnormality Impression: No acute process. This document has been electronically signed by: Shreyas Vuong MD on 01/10/2025 07:34:15
[2025-01-10 06:08] VITALS: BP 176/107; PULSE 84; RESP 18; TEMP 36.8; O2SAT 100; BMI 35.6
--- NOTE | 2025-01-10 06:40 | ED_ITS ---
HPI - URI/Sore Throat General Chief Complaint: Upper Respiratory Symptoms Stated Complaint: Cough, sore throat, chest pain Time Seen by Provider: 01/10/25 06:10 Source: patient and old records reviewed Mode of arrival: ambulatory Limitations: no limitations History of Present Illness ED Provider: JEN GRANADOS Narrative: 39 yo female with PMH of asthma has rescue inhaler cannot remember the last time she took prednisone, anxiety, HTN but not on any medications who has had a cough, sore throat, chest wall pain with cough after exposure to sick niece. Niece has croup. She does not report fevers. She is eating and drinking. No recent travel or procedures. MD elicited complaint: cough, sore throat and rhinorrhea Onset (ago): week(s) (1) Consistency: progressively worsening Severity: moderate Description of mucous: clear Able to tolerate fluids by mouth: Yes Exacerbating factors: swallowing and other (coughing) Relieving factors: nothing Context: sick contacts Associated symptoms: headache, sore throat, cough and chest pain Treatments prior to arrival: other Related Data Previous Rx's ?Medication ?Instructions ?Recorded bupropion HCl 150 mg 24 hr tablet, 150 mg PO QAM 90 da ys #90 tabs 05/17/24 extended release umeclidinium 62.5 mcg-vilanterol 1 inh inhalation SAMIR Y 60 days #60 05/17/24 25 mcg/actuation powdr for ea inhalation (Anoro Ellipta) hydrochlorothiazide 25 mg tablet 25 mg PO DAILY #90 ta bs 01/10/25 prednisone 20 mg tablet 40 mg (2 x 20 mg) PO DAILY 4 days 01/10/25 #8 tabs Allergies Allergy/AdvReac Type Severity Reaction Status Date / Time No Known Allergies Allergy Verified 01/10/25 06:11 Review of Systems Review of Systems: Constitutional : No Fever, No Chills ENT/Mouth : No Hoarseness, pos sore throat, pos Rhinorrhea Eyes: No Redness, No Discharge, No Vision Changes Cardiovascular : pos Chest Pain, no SOB Respiratory : positive Cough,positive Wheezing, Gastrointestinal : No Nausea, No Vomiting, No Diarrhea, No abdominal Pain Genitourinary : No Dysuria, No Hematuria Musculoskeletal : No joint pain, pos Myalgias All other systems reviewed and are negative Yes all other systems are reviewed and are negative [facility] Past Medical History Attestation statement: The following information was validated with the patient. Source: old records reviewed Medical History Insomnia Migraine GERD (gastroesophageal reflux disease) Hypovitaminosis D Depression with anxiety Left knee pain Surgical History History of laparoscopy History of tonsillectomy and adenoidectomy Family History Family History (Updated 05/17/24 @ 13:55 by Chasity Luciano MD) Father Essential hypertension Mother No problems noted. Social History Social History Housing: Apartment Alcohol intake: current Alcohol intake frequency: a few times a month Alcohol type: hard liquor and other Patient Tobacco Use Status: Current everyday Tobacco user Tobacco use type: Cigarette Cigarettes Per Day: 10 e-Cigarette/Vaping Use: Never Used Second Hand Smoke Exposure: No Do you have a plan to hurt others: No Plan service: No Current occupational status: unemployed Cognitive needs: No Hearing needs: No Vision needs: No Physical Exam Vital Signs: Vital Signs: Last Vital Signs Temp 98.3 F 01/10/25 06:08 Pulse 84 01/10/25 06:08 Resp 18 01/10/25 06:08 BP 176/107 H 01/10/25 06:08 Pulse Ox 100 01/10/25 06:08 O2 Del Method Room Air 01/10/25 06:08 BMI result Body Mass Index 35.6 Appearance: Alert. Oriented X3. No acute distress. Eyes: Pupils equal, round and reactive to light. ENT: Pharynx mild erythema uvula is midline no exudates Neck: Normal inspection. CVS: Normal heart rate and rhythm. Pulses normal. Respiratory: No respiratory distress. Breath sounds normal. Abdomen: atrauamtic Skin: Skin warm and dry. Normal skin color. Extremities: No lower extremity edema. Neuro: Oriented X 3. No motor deficit. No sensory deficit. Medications Administered Discontinued Medications Generic Name Dose Route Start Last Admin Trade Name Freq PRN Reason Stop Dose Admin Prednisone 40 mg 01/10/25 06:26 01/10/25 06:34 Prednisone 20 Mg Tablet PO 01/10/25 06:27 40 mg ONCE ONE Administration Medical Decision Making Medical Decision Making MDM Narrative: 39 yo female with PMH of asthma has rescue inhaler, anxiety, HTN (not on any medications) here with URI symptoms other than HTN she is not toxic no resp distress and no end organ dysfunction. On exam no wheezes suspect viral syndrome. Will obtain viral panel, CXR. She has no signs of deeper space infection of the throat. Will start on prednisone and start her on HCTZ 25mg daily for HTN. Differential Diagnosis Differential Diagnoses: The differential diagnosis associated with the presentation includes URI, HTN Admission/Observation Consideration of admission/observation: Escalation of care including admission/observation considered not toxic, stable for DC Lab Data [facility] Lab Attestation statement: I reviewed the patient's lab results. Labs: Lab Results 01/10/25 Range/Units 06:17 S. pyogenes GrpA MICA Negative (Negative) Independent Interpretation I performed an independent interpretation of an: Plain X-Ray (normal ) Radiology Impression Discussion of test interpretation with radiology: I have reviewed the radiologist's reading. External Record Review External record reviewed: Outpatient record and Prior outpatient labs Prescription Management I considered prescription management with: Antibiotic and Other Discharge Plan Discharge Clinical Impression: Viral infection HTN (hypertension) Qualifiers: Hypertension type: unspecified Qualified Code(s): I10 - Essential (primary) hypertension Patient Disposition: Home, Self-Care Instructions: Chronic Hypertension (ED), Viral Syndrome (ED), DASH Eating Plan (ED) Additional Instructions: hold blood pressure medication if blood pressure top number is below 90 your swabs were NEGATIVE for strep, covid, flu your chest xray was normal return to the ED for any worsening symptoms or concerns use your inhaler 2 to 4 puffs every 4 hours for wheezing Prescriptions: New prednisone 20 mg tablet 40 mg PO DAILY 4 Days Qty: 8 0RF hydrochlorothiazide 25 mg tablet 25 mg PO DAILY Qty: 90 0RF No Action bupropion HCl 150 mg tablet extended release 24 hr 150 mg PO QAM 90 Days Qty: 90 1RF Anoro Ellipta 62.5-25 mcg/actuation blister with device 1 inh inhalation DAILY 60 Days Qty: 60 4RF Stand Alone Forms: Work/School Release Print Language: British
[2025-01-10 07:11] VITALS: BP 176/107; PULSE 84; RESP 18; TEMP 36.8; O2SAT 100
== END 2025-01-10 07:12 | disposition home or self-care (01) ==
PROVIDERS: Emergency Provider Emergency Medicine; PCP Internal Medicine
DX: B34.9 Viral infection, unspecified (principal); I10 Essential (primary) hypertension; J45.909 Unspecified asthma, uncomplicated; F41.9 Anxiety disorder, unspecified; G47.00 Insomnia, unspecified; G43.909 Migraine, unspecified, not intractable, without status migrainosus; K21.9 Gastro-esophageal reflux disease without esophagitis; E55.9 Vitamin D deficiency, unspecified; F32.A Depression, unspecified; F17.210 Nicotine dependence, cigarettes, uncomplicated
CPT/HCPCS: 71046; 87502; 87635; 87651; 99282

== ENCOUNTER → 2025-01-10 06:16 | Outpatient (BNV) | payer OTHER, SELFPAY | PROVIDERS: Emergency Provider Emergency Medicine; PCP Internal Medicine; Visit Provider Radiology Vascular & Interventional Radiology | DX: R05.9 Cough, unspecified (principal) | CPT/HCPCS: 71046 ==

== ENCOUNTER 2025-04-12 13:33 | Outpatient (AMB) | payer OTHER, SELFPAY ==
--- NOTE | 2025-04-12 13:36 | MHC.PC.OV ---
Vital Signs 04/12/25 13:38 Height 5 ft 1 in Weight 204 lb BMI 38.5 BP 128/82 Blood Pressure Location Lt brachial Position Sitting Pulse 85 Pulse Source Pulse Oximeter Pulse Oximetry (%) 98 Oxygen Delivery Method Room Air Intake Visit Reasons: high blood pressure Block Tester Required: No Accompanied by: Self / Same As Patient Allergies No Known Allergies Allergy (Verified 04/12/25 13:43) Medication List - Last Reconciled 04/12/25 by Chasity Luciano MD blood pressure test kit-large ([facility] Blood Pressure Monitor kit) As directed bupropion HCl XL 150 mg PO QAM 90 days hydrochlorothiazide 25 mg PO DAILY umeclidinium-vilanterol 62.5-25 mcg/actuation (Anoro Ellipta) 1 inh inhalation DAILY 60 days Tobacco use date assessed: 05/17/24 Dental Screening Dental Screen Date: 05/17/24 HPI HPI Comments History of Present Illness Details This is a 39-year-old female with moderate major depression and anxiety that comes today complaining of lumbar pain radiating to the right here and femur associated with right leg numbness and tingling. No fever. This started few months ago and she will be referred to pain management. Aggravated by walking. She has not started bupropion yet for depression with anxiety. She also has a target shape rash in right arm that started few weeks ago but denies any fever action pain. Nonpruritic. Denies any tick bite. Does not go to the [place]. She does have hypertension but is compliant with hydrochlorothiazide now therefore blood pressure is okay. She also complains of allergic rhinitis and I will start her on antihistamines. She is a smoker and was advised to quit. [facility]LY [facility] Medical History Insomnia Migraine GERD (gastroesophageal reflux disease) Hypovitaminosis D Depression with anxiety Left knee pain Surgical History History of laparoscopy History of tonsillectomy and adenoidectomy Family History Father Essential hypertension Mother No problems noted. Social History Housing: Apartment Alcohol intake: current Alcohol intake frequency: a few times a month Alcohol type: hard liquor and other Patient Tobacco Use Status: Current everyday Tobacco user Tobacco use type: Cigarette Cigarettes Per Day: 5 e-Cigarette/Vaping Use: Never Used Second Hand Smoke Exposure: Yes service: No Current occupational status: unemployed Cognitive needs: No Hearing needs: No Vision needs: No Questionnaire PHQ-9 Over the last 2 weeks, how often have you been bothered by any of the following problems? 1. Little interest or pleasure in doing things: several days 2. Feeling down, depressed, or hopeless: not at all 3. Trouble falling or staying asleep, or sleeping too much: nearly every day 4. Feeling tired or having little energy: several days 5. Poor appetite or overeating: more than half the days 6. Feeling bad about yourself - or that you are a failure or have let yourself or your family down: several days 7. Trouble concentrating on things, such as reading the newspaper or watching television: not at all 8. Moving or speaking so slowly that other people could have noticed. Or the opposite - being so fidgety or restless that you have been moving around a lot more than usual: not at all 9. Thoughts that you would be better off or of hurting yourself in some way: not at all Total score: 8 Depression Screening Interpretation: Positive Depression Screening Follow-up: Existing condition, In treatment and Follow-up Visit Requested Depression Screening Done: Yes [id number] - PHQ-9 Billing: Yes Source: Developed by Drs. Crispin Iyer, Jaqui Ortega, Vinay Dunaway and colleagues, with an educational domingo from [employer]. Thrive Questionnaire Date Thrive assessed: 05/17/24 I am a: Patient What is your living situation today?: I have a steady place to live Within the past 12 months, did the food you bought not last and you didn't have the money to get more?: Often true Within the past 12 months, did you worry whether your food would run out before you got money to buy more?: Often true Do you have trouble paying for medicines?: No Do you have trouble getting transportation to medical appointments?: Yes Do you have trouble paying your heating and electricity bill?: Yes Do you have trouble taking care of your child, family member or friend?: No Do you have trouble with day-to-day activities such as bathing, preparing meals, shopping, managing finances, etc.?: No Are you currently unemployed and looking for a job?: No Are you interested in more education?: No Currently or been in a relationship where the following occur: No concerns reported THRIVE Score: 4 AUDIT C Alcohol Use Questionnaire (AUDIT-C) 1. How often do you have a drink containing alcohol?: Monthly or less 2. How many drinks containing alcohol do you have on a typical day when you are drinking?: 3 or 4 3. How often do you have six or more drinks on one occasion?: Never Total Score: 2 Score Reviewed/Action Taken: No AALIYAH-7 AMB Questionnaire AALIYAH-7 Date AALIYAH - 7 assessed: 05/17/24 Feeling nervous, anxious, or on edge: 3 = Nearly every day Not being able to stop or control worryin = Several days Worrying too much about different things: 2 = More than half the days Trouble relaxin = Nearly every day Being so restless that it is hard to sit still: 3 = Nearly every day Becoming easily annoyed or irritable: 3 = Nearly every day Feeling afraid as if something awful might happen: 0 = Not at all Total AALIYAH-7 score (0-4 normal; 5-9 mild; 10-14 moderate; 15-21 severe): 15 Source: Developed by Drs. Crispin Iyer, Jaqui Otrega, Vinay Dunaway and colleagues, with an educational domingo from [employer]. AALIYAH-7 Assessment Billing AALIYAH-7 Assessment Tool: AALIYAH-7 Assessment 22670 Review of Systems Const All systems reviewed & are unremarkable except as noted in HPI and below Card Denies chest pain at rest, Denies chest pain with activity, Denies edema, Denies irregular heart rhythm, Denies claudication, Denies dyspnea, Denies dyspnea on exertion, Denies orthopnea, Denies paroxysmal nocturnal dyspnea and Denies slow heart rate Resp Denies cough, Denies dyspnea and Denies dyspnea on exertion Physical exam (Primary Care) Vital Signs: Last Vital Signs Pulse 85 04/12/25 13:38 BP 128/82 04/12/25 13:38 Pulse Ox 98 04/12/25 13:38 Oxygen Delivery Method Room Air 12/24/25 13:38 BMI result Body Mass Index 38.5 BMI Assessment/Plan discussion: High BMI High, discussed plan: lifestyle, weight reduction, dietary and physical activity Tobacco/Smoking Status: Tobacco use Status Tobacco use date assessed 05/17/24 04/12/25 13:38 Patient Tobacco Use Status Current everyday Tobacco 04/12/25 13:38 Tobacco use type Cigarette 04/12/25 13:38 e-Cigarette/Vaping Use Never Used 04/12/25 13:38 PHQ-9: PHQ-9 Score PHQ-9: Total score 8 04/12/25 13:45 Depression Screening Interpretation: Positive Depression Screening Follow-up: Existing condition, In treatment and Follow-up Visit Requested Thrive Assessment: Date of Thrive Assessment Date Thrive assessed 05/17/24 04/12/25 13:38 Currently or been in a relationship where the following occur: No concerns reported Resp Effort & Inspection: normal respiratory effort Auscultation: clear to auscultation bilaterally Cardio Jugular venous distension: no JVD Rate: regular rate Rhythm: regular rhythm Heart sounds: S1 normal heart sound present and S2 normal heart sound present Extrem General: Yes full ROM Coding Level of Care Code Add On Preventative Visit Only Diagnoses Rash R21 Moderate major depression F32.1 AALIYAH (generalized anxiety disorder) F41.1 Essential hypertension I10 Lumbar pain M54.50 Allergic rhinitis J30.9 Additional Codes AALIYAH-7 Assessment Billing - AALIYAH-7 Assessment Tool: AALIYAH-7 Assessment [id number] ([id number]) PHQ-9 - 46458 - PHQ-9 Billing: Yes ([id number]) Time Spent (min) 22 Assessment & Plan Assessment & Plan (1) Rash: Code(s): R21 - Rash and other nonspecific skin eruption Category: Medical (2) Moderate major depression: Code(s): F32.1 - Major depressive disorder, single episode, moderate Category: Medical (3) AALIYAH (generalized anxiety disorder): Code(s): F41.1 - Generalized anxiety disorder Category: Medical (4) Essential hypertension: Code(s): I10 - Essential (primary) hypertension Category: Medical (5) Lumbar pain: Code(s): M54.50 - Low back pain, unspecified Category: Medical (6) Allergic rhinitis: Code(s): J30.9 - Allergic rhinitis, unspecified Category: Medical Plan Start levocetirizine for allergic rhinitis. XR ordered for lumbar pain. She was refer to pain management. Continue HCTZ for hypertension. BP goal is equal or less than 130/80. Start cream for rash. Labs ordered. Orders: Orders XR lumbar spine 2-3V 04/12/25 M54.50 - Low back pain, unspecified XR femur RT 2V 04/12/25 M89.8X5 - Other specified disorders of bone, thigh Renin 04/12/25 I10 - Essential (primary) hypertension Vitamin D 25-OH Total 04/12/25 E55.9 - Vitamin D deficiency, unspecified XR hip RT min 2V 04/12/25 M25.551 - Pain in right hip HLA B27 04/12/25 M54.50 - Low back pain, unspecified Comprehensive [place]. Panel Fast 04/12/25 I10 - Essential (primary) hypertension Complete Blood Count Auto Diff 04/12/25 D64.9 - Anemia, unspecified, M54.50 - Low back pain, unspecified Lipid Panel 04/12/25 E78.5 - Hyperlipidemia, unspecified, I10 - Essential (primary) hypertension Aldosterone 04/12/25 R21 - Rash and other nonspecific skin eruption Lyme IgG/IgM w/reflex to WB 04/12/25 R21 - Rash and other nonspecific skin eruption Referrals Pain Management Referral M25.551 - Pain in right hip, M54.50 - Low back pain, unspecified, M89.8X5 - Other specified disorders of bone, thigh Medications: New levocetirizine 5 mg PO DAILY PRN 90 tabs 1RF allergy symptoms 90 days clotrimazole-betamethasone 1-0.05 % 1 appl topical BID 45 grams 1RF 30 days
[2025-04-12 13:38] VITALS: BP 128/82; PULSE 85; O2SAT 98; BMI 38.5
== END 2025-04-12 13:54 | disposition home or self-care (01) ==
LOC: HO.HMCH 13:34
PROVIDERS: PCP Internal Medicine; Visit Provider Internal Medicine
DX: R21 Rash and other nonspecific skin eruption (principal); F32.1 Major depressive disorder, single episode, moderate; F41.1 Generalized anxiety disorder; I10 Essential (primary) hypertension; M54.50 Low back pain, unspecified; J30.9 Allergic rhinitis, unspecified

== ENCOUNTER → 2025-04-12 13:33 | Outpatient (BNVA) | payer OTHER, SELFPAY | PROVIDERS: PCP Internal Medicine; Visit Provider Internal Medicine | DX: I10 Essential (primary) hypertension (principal); R21 Rash and other nonspecific skin eruption; F32.1 Major depressive disorder, single episode, moderate; F41.1 Generalized anxiety disorder; M54.50 Low back pain, unspecified; J30.9 Allergic rhinitis, unspecified | CPT/HCPCS: 96127; 99212 ==